=== PATIENT | female | born 1950 | race Caucasian/White ===

== ENCOUNTER 2017-09-15 13:41 | Outpatient (CLI) | payer MEDICARE | END 2017-09-15 13:42 | disposition home or self-care (01) | LOC: BICMAMMO 13:41 | PROVIDERS: ATTEND Obstetrics & Gynecology | DX: Z12.31 Encounter for screening mammogram for malignant neoplasm of breast (principal) | CPT/HCPCS: 77063; 77067 ==

== ENCOUNTER 2017-12-14 13:28 | Outpatient (CLI) | payer MEDICARE ==
--- NOTE | 2017-12-14 14:15 | RAD ---
RADIOGRAPH CHEST 2 VIEWS: HISTORY: A 67-year-old female with dyspnea. FINDINGS: There is no air space density, pulmonary edema, pleural effusion, pneumothorax, or cardiomegaly. IMPRESSION: No acute cardiopulmonary findings. jn [] POS: OLIVIA
== END 2017-12-14 13:29 | disposition home or self-care (01) ==
LOC: RAD 13:28
PROVIDERS: ATTEND Internal Medicine Critical Care Medicine
DX: R06.00 Dyspnea, unspecified (principal)
CPT/HCPCS: 71046

== ENCOUNTER 2018-10-05 09:43 | Outpatient (CLI) | payer MEDICARE ==
--- NOTE | 2018-10-05 10:19 | MMO ---
Bilateral MAMMO Bilat Screen [facility]. CLINICAL HISTORY: Patient is 67 years old and is seen for screening. The patient has no family history of breast cancer. The patient has no personal history of cancer. VIEWS: The views performed were: bilateral craniocaudal with tomosynthesis and bilateral mediolateral oblique with tomosynthesis. FILMS COMPARED: The present examination has been compared to prior imaging studies performed at [facility] on 07/23/2016 and 09/15/2017, and at [facility] on 11/17/2009 and 11/21/2009. MAMMOGRAM FINDINGS: There are scattered fibroglandular densities. Finding 1: There are stable benign appearing calcifications seen in both breasts. Finding 2: There is an intramammary lymph node seen in the right breast. There are no suspicious masses, suspicious calcifications, or new areas of architectural distortion. IMPRESSION: THERE IS NO MAMMOGRAPHIC EVIDENCE OF MALIGNANCY. A ROUTINE FOLLOW-UP MAMMOGRAM IN 1 YEAR IS RECOMMENDED. THE RESULTS OF THIS EXAM WERE SENT TO THE PATIENT. ACR BI-RADS Category 2 - Benign finding MAMMOGRAPHY NOTE: 1. A negative mammogram report should not delay a biopsy if a dominant of clinically suspicious mass is present. 2. Approximately 10% to 15% of breast cancers are not detected by mammography. 3. Adenosis and dense breasts may obscure an underlying neoplasm.
--- NOTE | 2018-10-05 10:54 | BD ---
DEXA BONE DENSITY: HISTORY: Screening study for a postmenopausal female. COMPARISON: 11/14/2008. FINDINGS: Lumbar Spine: BMD (g/cm2) L1 0.784 T-Score: -1.9 -0.1 L2 9,678 T-Score: -3.2 -1.3 L3 0.660 T-Score: -3.9 -1.8 L4 0.690 T-Score: -3.4 -1.3 L1-L4 0.701 T-Score: -3.1 -1.2 8509 0.75 -2.6 BMD change versus baseline -7.4%. BMD change versus previous -7.4%. Femoral Neck: 0.593 T-Score: -2.3 -0.6 Total Femur: 0.739 T-Score: -1.7 -0.3 8509 0.788 -1.3 BMD change versus baseline -6.3%. BMD change versus previous -6.3%. Impression: Lumbar spine: WHO classification for osteoporosis. Fracture risk is high. Femoral neck: WHO classification is osteopenia. Fracture risk is not reported because some T-scores are at or below -2.5. POS: CET
== END 2018-10-05 09:44 | disposition home or self-care (01) ==
LOC: BICMAMMO 09:43
PROVIDERS: ATTEND Obstetrics & Gynecology
DX: Z12.31 Encounter for screening mammogram for malignant neoplasm of breast (principal); Z13.820 Encounter for screening for osteoporosis; M81.0 Age-related osteoporosis without current pathological fracture; M85.859 Other specified disorders of bone density and structure, unspecified thigh
CPT/HCPCS: 77063; 77067; 77080

== ENCOUNTER 2019-01-10 09:30 | Outpatient (CLI) | payer MEDICARE ==
--- NOTE | 2019-01-10 09:56 | RAD ---
EXAM: Two views chest PROVIDED CLINICAL HISTORY: Dyspnea COMPARISON: 12/14/2017 FINDINGS: Cardiac silhouette and pulmonary vasculature are within normal limits. The lungs are clear. Degenera tive changes are again present spine. Chest is stable when compared to prior study. IMPRESSION: No acute cardiopulmonary process.
== END 2019-01-10 09:31 | disposition home or self-care (01) ==
LOC: RAD 09:30
PROVIDERS: ATTEND Internal Medicine Critical Care Medicine
DX: R06.00 Dyspnea, unspecified (principal)
CPT/HCPCS: 71046

== ENCOUNTER 2019-10-17 12:37 | Outpatient (CLI) | payer MEDICARE ==
--- NOTE | 2019-10-17 12:54 | RAD ---
Chest 2 views HISTORY: Dyspnea. COMPARISON: 01/10/2019. FINDINGS: Cardiac silhouette is unremarkable. Pulmonary vasculature are within normal limits. Mediast inum is midline. Lungs remain slightly hyperinflated. Very subtle ill-defined parenchymal opacities project over the left apex and the right posterior lung base, partially obscuring the right hemidiaphragm. No lobar consolidation or pneumothorax. IMPRESSION : Subtle left upper lobe and right lung base parenchymal opacity/mild infiltrate. Nonspecific finding. Clinical correlation regarding other signs and symptoms of multifocal pneumonitis is required. Pulmonary hyperinflation, stable.
== END 2019-10-17 12:38 | disposition home or self-care (01) ==
LOC: BICRAD 12:37
PROVIDERS: ATTEND Internal Medicine Critical Care Medicine
DX: R06.00 Dyspnea, unspecified (principal); R91.8 Other nonspecific abnormal finding of lung field
CPT/HCPCS: 71046

== ENCOUNTER 2020-03-20 14:04 | Outpatient (CLI) | payer MEDICARE ==
--- NOTE | 2020-03-20 18:48 | RAD ---
Chest 2 views: 03/20/2020 COMPARISON: 10/17/2019 HISTORY: Shortness of breath FINDINGS: Stable mild increased linear interstitial density noted. Mild stable pulmonary hyperinflati on suggesting air trapping. No pneumothorax or pleural fluid is seen and there is no focal consolidation or alveolar edema. IMPRESSION: No acute findings.
== END 2020-03-20 14:05 | disposition home or self-care (01) ==
LOC: BICRAD 14:04
PROVIDERS: ATTEND Internal Medicine Critical Care Medicine
DX: R06.00 Dyspnea, unspecified (principal)
CPT/HCPCS: 71046

== ENCOUNTER 2021-04-28 11:20 | Outpatient (CLI) | payer MEDICARE | END 2021-04-28 11:21 | disposition home or self-care (01) | LOC: BICRAD 11:20 | PROVIDERS: ATTEND Internal Medicine Critical Care Medicine | DX: R06.00 Dyspnea, unspecified (principal) | CPT/HCPCS: 71046 ==

== ENCOUNTER 2021-10-14 09:12 | Outpatient (CLI) | payer MEDICARE | END 2021-10-14 09:13 | disposition home or self-care (01) | LOC: BICMAMMO 09:12 | PROVIDERS: ATTEND Surgery | DX: N63.31 Unspecified lump in axillary tail of the right breast (principal) | CPT/HCPCS: 76999; 77066; G0279 ==

== ENCOUNTER 2021-10-21 10:37 | Outpatient (CLI) | payer MEDICARE ==
[2021-10-21 11:32] LABS: #Eosinphils 0.2 10x3/uL (0.0-0.5); #Monocytes 0.4 10x3/uL (0.0-1.1); #Neutrophils 1.9 10x3/uL (1.5-8.4); %Basophils 0.7 % (0.0-2.0); %Eosinophils 4.3 % (0.0-6.0); %Lymphocytes 38.5 % (18.0-47.0); %Monocytes 10.1 % (0.0-10.0); %Neutrophils 46.2 % (40.0-75.0); Hemoglobin 12.7 g/dL (12.0-15.5); Mean Corpuscular HGB CONC 33.1 g/dL (32.0-36.0); Mean Corpuscular Hemoglobin 30.8 pg (27.0-33.0); Mean Platelet Volume 9.2 fl (7.4-10.4); Platelet Count 321 10x3/uL (150-450); RBC Distribution Width 11.9 % (11.5-14.5); Red Blood Cell (RBC) Count 4.13 10x6/uL (3.90-5.03); White Blood Cell (WBC) Count 4.2 10x3/uL (3.5-10.5)
[2021-10-21 11:43] LABS: ALT (SGPT) 19 U/L (8-55); AST (SGOT) 10 U/L (5-34); Albumin 4.7 g/dL (3.4-4.8); Alkaline Phosphatase 59 U/L (40-110); Anion Gap 12 mmol/L (10-20); BUN (Urea Nitrogen) 10 mg/dL (9.8-20.1); Bilirubin, Total 0.9 mg/dL (0.2-1.2); Calc. Creatinine Clearance 0 mL/min (70-130); Calcium 9.9 mg/dL (7.8-10.44); Carbon Dioxide 29 mmol/L (23-31); Chloride 104 mmol/L (98-107); Estimated GFR 77; Globulin 2.2 g/dL (2.4-3.5); Glucose 107 mg/dL (80-115); Potassium 4.3 mmol/L (3.5-5.1); Protein, Total 6.9 g/dL (5.8-8.1); Sodium 141 mmol/L (136-145)
== END 2021-10-21 10:38 | disposition home or self-care (01) ==
LOC: LABBT 10:37
PROVIDERS: ATTEND Surgery
DX: Z01.818 Encounter for other preprocedural examination (principal); R22.31 Localized swelling, mass and lump, right upper limb; Z20.822 Contact with and (suspected) exposure to COVID-19
CPT/HCPCS: 80053; 85025; 87811; 93005; 93010

== ENCOUNTER 2021-10-24 08:47 | Day surgery (SDC) | payer MEDICARE ==
[2021-10-22 13:15] VITALS: BMI 24.3
[2021-10-24] MEDS ORDERED: Lidocaine 1% w/Epinephrine 1:100K 20 ML VIAL ONE (09:57)
[2021-10-24] MEDS ORDERED: Bupivacaine 0.25% HCL 30 ML VIAL ONE (09:57)
[2021-10-24] MEDS ORDERED: Levofloxacin 500 mg/D5W 100 ml Premix Bag ONE (10:02)
[2021-10-24] MEDS ORDERED: Famotidine/PF 20 mg/2ml Vial ONE (10:03)
[2021-10-24] MEDS ORDERED: fentaNYL Citrate/PF 100 MCG/2 ML SYRINGE ONE (10:03)
[2021-10-24] MEDS ORDERED: Dexamethasone 20 MG/5 ML VIAL ONE (10:18)
[2021-10-24] MEDS ORDERED: Ketorolac Tromethamine 30 MG/ML VIAL ONE (10:18)
[2021-10-24] MEDS ORDERED: Lidocaine 1% PF 5 ML VIAL ONE (10:18)
[2021-10-24] MEDS ORDERED: Ondansetron PF 4 MG/2 ML Vial ONE (10:18)
[2021-10-24] MEDS ORDERED: Metoclopramide HCl 10 MG/2 ML VIAL ONE (10:18)
[2021-10-24] MEDS ORDERED: PROPOFOL 200 MG/20 ML VIAL ONE (10:18)
== END 2021-10-24 12:11 | disposition home or self-care (01) ==
LOC: SDC 08:47
PROVIDERS: ATTEND Surgery
PROC: 0JB60ZZ Excision of Chest Subcutaneous Tissue and Fascia, Open Approach (ICD-10-PCS; principal; 2021-10-24)
DX: D17.21 Benign lipomatous neoplasm of skin and subcutaneous tissue of right arm (principal); J45.909 Unspecified asthma, uncomplicated; I10 Essential (primary) hypertension; Z79.899 Other long term (current) drug therapy; Z88.0 Allergy status to penicillin
CPT/HCPCS: 88304; J1100; J1885; J1956; J2405; J2704; J2765; S0020; S0028

== ENCOUNTER 2023-02-12 08:17 | Outpatient (CLI) | payer MEDICARE | END 2023-02-12 08:18 | disposition home or self-care (01) | LOC: RAD 08:17 | PROVIDERS: ATTEND Internal Medicine Critical Care Medicine | DX: R06.00 Dyspnea, unspecified (principal) | CPT/HCPCS: 71046 ==

== ENCOUNTER 2023-06-09 14:28 | Outpatient (CLI) | payer MEDICARE | END 2023-06-09 14:29 | disposition home or self-care (01) | LOC: SCSRAD 14:28 | PROVIDERS: ATTEND Family Medicine | DX: S29.9XXA Unspecified injury of thorax, initial encounter (principal) ==

== ENCOUNTER 2023-10-05 08:57 | Outpatient (CLI) | payer MEDICARE | END 2023-10-05 08:58 | disposition home or self-care (01) | LOC: SCSRAD 08:57 | PROVIDERS: ATTEND Nurse Practitioner Family | DX: S89.92XA Unspecified injury of left lower leg, initial encounter (principal); S99.922A Unspecified injury of left foot, initial encounter; S92.415A Nondisplaced fracture of proximal phalanx of left great toe, initial encounter for closed fracture; S92.422A Displaced fracture of distal phalanx of left great toe, initial encounter for closed fracture; S82.035A Nondisplaced transverse fracture of left patella, initial encounter for closed fracture ==